=== PATIENT | female | born 1970 | race Caucasian/White ===

== ENCOUNTER → 2016-04-22 | Outpatient (CLI) | payer BC ==
--- NOTE | 2016-04-23 10:36 | MM ---
Reason for exam: screening (asymptomatic). Last mammogram was performed 3 years and 10 months ago. History: Took hormonal contraceptives for 10 years beginning at age 18. Physical Findings: A clinical breast exam by your physician is recommended on an annual basis and results should be correlated with mammographic findings. MG Screening Mammo w CAD Bilateral CC and MLO view(s) were taken. Prior study comparison: June 13, 2012, bilateral digital screening mammo w/CAD. January 21, 2009, bilateral digital screening mammogram. The breast tissue is heterogeneously dense. This may lower the sensitivity of mammography. Finding: There are typically benign round calcifications in the left breast. There is no discrete abnormality. ASSESSMENT: Benign, BI-RAD 2 RECOMMENDATION: Routine screening mammogram of both breasts in 1 year.
== END | disposition home or self-care (01) ==
LOC: RADMAMWWP 13:10
PROVIDERS: ATTEND Obstetrics & Gynecology
DX: Z12.31 Encounter for screening mammogram for malignant neoplasm of breast (principal)

== ENCOUNTER → 2016-05-11 | Outpatient (CLI) | payer BC ==
--- NOTE | 2016-05-11 11:52 | XR ---
EXAMINATION TYPE: XR chest 2V DATE OF EXAM: 05/11/2016 11:11 AM COMPARISON: 02/08/2009 HISTORY: 45-year-old female at this chronic heart disease of sun'aq coronaries, pain. TECHNIQUE: Frontal and lateral views FINDINGS: The cardiomediastinal silhouette, aorta, and pulmonary vasculature are within normal limits. Lungs an d pleural spaces are clear. IMPRESSION: No acute cardiopulmonary process.
== END | disposition home or self-care (01) ==
LOC: RADXRMAIN 10:58
PROVIDERS: ATTEND Family Medicine
DX: I25.10 Atherosclerotic heart disease of native coronary artery without angina pectoris (principal)
CPT/HCPCS: 71020

== ENCOUNTER → 2016-06-04 | Outpatient (CLI) | payer BC ==
--- NOTE | 2016-06-04 11:51 | EST ---
DATE OF SERVICE: 06/04/2016 AGE: 45Y SEX: F HT: 67 WT: 225 lbs. Protocol Bradford: X Other: Stage: II Dur. of Exercise: 7 minutes *Heart Rate Blood Pressure *Rest: 81 Rest: 176/87 * *Max. Achieved: 173 Maximum BP: 214/51 85% PMHR: 149 100% PMHR: 175 *METS: 8 INDICATIONS: Chest pain. MEDICATIONS: Atenolol, isosorbide, aspirin. Baseline EKG shows sinus rhythm, normal axis, normal intervals. Patient exercised on Bradford protocol for a total 7 minutes, achieving 8 METs, 98% of predicted maximal heart rate without chest pain. At peak exercise, there was [address] segment depression noted in the inferolateral leads. CONCLUSIONS: 1. Average exercise tolerance. 2. Abnormal stress test by EKG criteria.
--- NOTE | 2016-06-05 09:15 | ECHOF ---
Referral Reason:I25.10 CAD MEASUREMENTS -------- HEIGHT: 170.2 cm WEIGHT: 102.1 kg BP: 176/87 RVIDd: 3.4 cm (< 3.3) IVSd: 1.2 cm (0.6 - 1.1) LVIDd: 3.6 cm (3.9 - 5.3) LVPWd: 1.2 cm (0.6 - 1.1) IVSs: 1.7 cm LVIDs: 2.6 cm LVPWs: 1.9 cm LA Diam: 3.8 cm (2.7 - 3.8) LAESV Index (A-L): 20.64 ml/m Ao Diam: 2.9 cm (2.0 - 3.7) AV Cusp: 2.1 cm (1.5 - 2.6) MV EXCURSION: 19.089 mm (> 18.000) MV EF SLOPE: 69 mm/s (70 - 150) EPSS: 0.4 cm MV E Oseas: 0.88 m/s MV DecT: 251 ms MV A Oseas: 0.78 m/s MV E/A Ratio: 1.12 FINDINGS -------- Sinus rhythm. This was a technically adequate study. The left ventricular size is normal. There is borderline concentric left ventricular hypertrophy. Overall left ventricular systolic function is normal with, an EF between 60 - 65 %. The right ventricle is mildly enlarged. Normal LA size by volume 22+/-6 ml/m2. The right atrium is normal in size. The aortic valve is trileaflet and appears structurally normal. The mitral valve is normal. The tricuspid valve appears structurally normal. The pulmonic valve is normal. The aortic root size is normal. There is no pericardial effusion. CONCLUSIONS -------- 1. Sinus rhythm. 2. The mitral valve is normal. 3. The tricuspid valve appears structurally normal. 4. The pulmonic valve is normal. 5. The aortic root size is normal. 6. There is no pericardial effusion. 7. This was a technically adequate study. 8. The left ventricular size is normal. 9. There is borderline concentric left ventricular hypertrophy. 10. Overall left ventricular systolic function is normal with, an EF between 60 - 65 %. 11. The right ventricle is mildly enlarged. 12. Normal LA size by volume 22+/-6 ml/m2. 13. The right atrium is normal in size. 14. The aortic valve is trileaflet and appears structurally normal. LEVER TENDER: Liberty Garnett RDCS
== END | disposition home or self-care (01) ==
LOC: RADNMMAIN 11:02
PROVIDERS: ATTEND Family Medicine
DX: I51.7 Cardiomegaly (principal); I25.10 Atherosclerotic heart disease of native coronary artery without angina pectoris
CPT/HCPCS: 93017; 93306

== ENCOUNTER → 2018-03-07 | Outpatient (CLI) | payer BC ==
--- NOTE | 2018-03-07 10:14 | CT ---
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 TECHNIQUE: Contiguous high-resolution axial scanning of the temporal bones performed without IV cont rast. Coronal reformatted images obtained. FINDINGS: There is no abnormality of visualized intracranial structures. The skull base appears normal. The external auditory canals appear patent. The middle ear cavities are well pneumatized without any abnormal fluid detected. Mastoid air cells a re well pneumatized. There is no abnormality of middle ear ossicles. The round and oval windows are normal. There is no abnormality of bony labyrinths. Specifically, no pneumolabyrinth is identified. The vestibular and cochlear aqueducts are well visualized. The facial nerve canal is normal bilaterally. The internal auditory canal and meati are symmetrical bilaterally. There is no evidence of fractures. Mild mucosal thickening posterior left ethmoid air cells. Leftward nasal septal deviation. Reformatted images confirm above findings. IMPRESSION: 1. No specific CT findings such as leakage of perilymph into the middle ear or pneumolabyrinth in the inner ear to suggest labyrinthine fistula. 2. No specific abnormality identified on temporal bone CT.
== END | disposition home or self-care (01) ==
LOC: RADCTMAIN 09:03
PROVIDERS: ATTEND Otolaryngology
DX: H83.12 Labyrinthine fistula, left ear (principal)
CPT/HCPCS: 70480

== ENCOUNTER → 2018-03-13 | Outpatient (CLI) | payer BC ==
--- NOTE | 2018-03-16 11:05 | MM ---
Reason for exam: screening (asymptomatic). Last mammogram was performed 1 year and 11 months ago. History: Patient is postmenopausal. Took hormonal contraceptives for 10 years beginning at age 18. Taking estrogen for 2 months. Taking progesterone for 2 months. Physical Findings: A clinical breast exam by your physician is recommended on an annual basis and results should be correlated with mammographic findings. MG Screening Mammo w CAD Bilateral CC and MLO view(s) were taken. Prior study comparison: April 22, 2016, bilateral MG screening mammo w CAD. June 13, 2012, bilateral digital screening mammo w/CAD. The breast tissue is heterogeneously dense. This may lower the sensitivity of mammography. Finding: There are typically benign round, regional calcifications in the upper outer quadrant, anterior position of the left breast. There is no discrete abnormality. ASSESSMENT: Benign, BI-RAD 2 RECOMMENDATION: Routine screening mammogram of both breasts in 1 year.
== END | disposition home or self-care (01) ==
LOC: RADMAMWWP 09:42
PROVIDERS: ATTEND Obstetrics & Gynecology
DX: Z12.31 Encounter for screening mammogram for malignant neoplasm of breast (principal)
CPT/HCPCS: 77067

== ENCOUNTER → 2020-06-05 | Outpatient (CLI) | payer BC ==
--- NOTE | 2020-06-09 09:52 | MM ---
Reason for exam: screening (asymptomatic). Last mammogram was performed 2 years and 3 months ago. History: Patient is postmenopausal. Took hormonal contraceptives for 10 years beginning at age 18. Taking estrogen for 2 months. Taking progesterone for 2 months. Physical Findings: A clinical breast exam by your physician is recommended on an annual basis and results should be correlated with mammographic findings. MG Screening Mammo w CAD Bilateral CC and MLO view(s) were taken. Prior study comparison: March 13, 2018, bilateral MG screening mammo w CAD. April 22, 2016, bilateral MG screening mammo w CAD. The breast tissue is heterogeneously dense. This may lower the sensitivity of mammography. Benign oil cyst calcification on the left. No significant changes when compared with prior studies. ASSESSMENT: Benign, BI-RAD 2 RECOMMENDATION: Routine screening mammogram of both breasts in 1 year.
== END | disposition home or self-care (01) ==
LOC: RADMAMWWP 06:58
PROVIDERS: ATTEND Obstetrics & Gynecology
DX: Z12.31 Encounter for screening mammogram for malignant neoplasm of breast (principal)
CPT/HCPCS: 77067

== ENCOUNTER → 2020-09-05 | Day surgery (SDC) | payer BC ==
[2020-09-02 15:32] VITALS: BMI 33.6
[~2020-09-05] MED LIST: LACTATED RINGERS 1,000 ML IV ONE; LACTATED RINGERS 1,000 ML IV SCH; LIDOCAINE 1% INJ 10MG/ML (20 ML MDV) ONE; PROPOFOL 10 MG/ML 20 ML VIAL IV ONE
[2020-09-05 10:51] VITALS: TEMP 97.7
--- NOTE | 2020-09-05 12:24 | P.PCN ---
Date of Procedure: 09/05/20 Procedure(s) Performed: BRIEF HISTORY: Patient is a 50-year-old pleasant white female scheduled for an elective colonoscopy as a part of evaluation for colorectal neoplasia. PROCEDURE PERFORMED: Colonoscopy. With biopsy PREOPERATIVE DIAGNOSIS: Screening for colon cancer. IV sedation per Anesthesia. PROCEDURE: After informed consent was obtained, the patient, was brought into the endoscopy unit. IV sedation was administered by Anesthesia under continuous monitoring. Digital rectal examination was normal. Initially the Olympus CF-160 flexible video colonoscope was then inserted in the rectum, gradually advanced into the cecum without any difficulty. Careful examination was performed as the scope was gradually being withdrawn. Ileocecal valve and the appendiceal orifice were visualized and appeared normal. Prep was excellent. Mucosa of the cecum, ascending colon, transverse colon, descending colon, appeared normal. There was patchy areas of erythema noted in the proximal sigmoid colon extending from 30- 35 cm from the anal verge status post biopsy. Rest of the sigmoid colon, and rectum appeared normal. Retroflexion was performed in the rectum and no lesions were seen. The patient tolerated the procedure well. IMPRESSION: Mild patchy areas of erythema noted in the sigmoid colon extending from 30-35 cm from anal verge status post biopsy Rest of the colon appeared normal RECOMMENDATIONS: Findings of this examination were discussed with the patient as well as a family. He was advised to have a repeat screening colonoscopy in 10 years..
[2020-09-05 12:30] VITALS: PULSE 70; RESP 17
[2020-09-05 12:38] VITALS: BP 137/79
== END ==
LOC: ORWHC2ENDO 10:34
PROVIDERS: ATTEND Internal Medicine Gastroenterology
DX: Z12.11 Encounter for screening for malignant neoplasm of colon (principal); K63.9 Disease of intestine, unspecified; Z79.899 Other long term (current) drug therapy; I10 Essential (primary) hypertension; E78.5 Hyperlipidemia, unspecified; I25.2 Old myocardial infarction; K21.9 Gastro-esophageal reflux disease without esophagitis; Z79.82 Long term (current) use of aspirin
CPT/HCPCS: 88305; 45380; J2001; J2704

== ENCOUNTER → 2020-12-27 | Outpatient (CLI) | payer BC ==
[2020-12-27 17:17] LABS: Basophils # (A) 0.01 X 10*3/uL (0.00-0.10); Basophils % (A) 0.3 %; Eosinophils % (A) 2.8 %; HCT 41.9 % (37.2-46.3); MCH 25.6 pg (27.0-32.0); MCV 82.5 fL (80.0-97.0); Mean Platelet Volume 12.2 fL (9.5-12.2); Monocytes % (A) 11.2 %; Neutrophils # (A) 2.54 X 10*3/uL (1.80-7.70); Neutrophils % (A) 71.4 %; Platelet Count 205 X 10*3/uL (140-440); RBC 5.08 X 10*6/uL (4.10-5.20); RDW 15.6 % (11.5-14.5); WBC 3.56 X 10*3/uL (4.50-10.00)
[2020-12-27 21:04] LABS: African American GFR (CKD) 121.3 (60.0-200.0); Albumin 4.3 g/dL (3.8-4.9); Albumin/Globulin Ratio 2.35 (1.60-3.17); Anion Gap 13.7 mmol/L (4.00-12.00); BUN/Creat Ratio 19.27 Ratio (12.00-20.00); Blood Urea Nitrogen 12.1 mg/dL (9.0-27.0); Calcium 9.2 mg/dL (8.7-10.3); Carbon Dioxide 23.2 mmol/L (21.6-31.8); Chol/HDL Ratio 4.62 Ratio; Globulin 1.9 g/dL (1.6-3.3); HDL Cholesterol 26.4 mg/dL (40.00-60.00); LDL Cholesterol,Calculated 46.4 mg/dL (0.0-131.0); Non-African American GFR(CKD) 104.7 (60.0-200.0); Potassium 4.2 mmol/L (3.5-5.5); T4, Free (Free Thyroxine) 1.28 ng/dL (0.800-1.800); Total Bilirubin 0.6 mg/dL (0.30-1.20); Total Protein 6.2 g/dL (6.2-8.2); VLDL Calculation 49.2 mg/dL (5.00-40.00)
== END | disposition home or self-care (01) ==
LOC: LABWHC1 09:25
PROVIDERS: ATTEND Internal Medicine Interventional Cardiology
DX: I25.10 Atherosclerotic heart disease of native coronary artery without angina pectoris (principal); E78.2 Mixed hyperlipidemia; D47.3 Essential (hemorrhagic) thrombocythemia; R73.9 Hyperglycemia, unspecified
CPT/HCPCS: 36415; 80053; 80061; 83036; 84439; 84443; 85025

== ENCOUNTER → 2022-08-10 | Outpatient (CLI) | payer BC ==
--- NOTE | 2022-08-11 08:34 | MM ---
Reason for Exam: Screening (asymptomatic). Last mammogram was performed 2 year(s) and 2 month(s) ago. Patient History: Menarche at age 12. First Full-Term at age 29. Postmenopausal. Patient has history of breast feeding. Estrogen for 6 months. Progesterone for 6 months. Hormonal Contraceptives for 10 years from age 18 until age 28. Risk Values: Abigail 5 year model risk: 1.2%. NCI Lifetime model risk: 9.6%. Prior Study Comparison: 04/22/2016 Bilateral Screening Mammogram, [facility]. 03/13/2018 Bilateral Screening Mammogram, [facility]. 06/05/2020 Bilateral Screening Mammogram, [facility]. Tissue Density: The breast tissue is heterogeneously dense. This may lower the sensitivity of mammography. Findings: Analyzed By CAD. There is no suspicious group of microcalcifications or new suspicious mass in either breast. Overall Assessment: Negative, BI-RAD 1 Management: Screening Mammogram of both breasts in [address] [facility] will attempt to contact patient to return for supplemental views and ultrasound if indicated. Patient should continue monthly self-breast exams. A clinical breast exam by your physician is recommended on an annual basis. This exam should not preclude additional follow-up of suspicious palpable abnormalities. Note on Abigail scores and lifetime risk: 1. A Abigail score greater than 3% is considered moderate risk. If this is the case, consider specialist referral to assess eligibility for a risk reducing agent. 2. If overall lifetime risk for the development of breast cancer is 20% or higher, the patient may qualify for future screening with alternating mammogram and breast MRI. Electronically signed and approved by: Miquel Minor DO
== END | disposition home or self-care (01) ==
LOC: RADMAMWWP 07:27
PROVIDERS: ATTEND Internal Medicine Hematology & Oncology
DX: Z12.31 Encounter for screening mammogram for malignant neoplasm of breast (principal); Z78.0 Asymptomatic menopausal state
CPT/HCPCS: 77067

== ENCOUNTER → 2024-03-09 | Outpatient (CLI) | payer BC ==
--- NOTE | 2024-03-13 13:43 | MM ---
Reason for Exam: Screening (asymptomatic). Last mammogram was performed 1 year(s) and 7 month(s) ago. Patient History: Menarche at age 12. First Full-Term at age 29. Postmenopausal. Patient has history of breast feeding. Estrogen for 6 months. Progesterone for 6 months. Hormonal Contraceptives for 10 years from age 18 until age 28. Risk Values: Abigail 5 year model risk: 1.2%. NCI Lifetime model risk: 9.4%. Prior Study Comparison: 03/13/2018 Bilateral Screening Mammogram, [facility]. 06/05/2020 Bilateral Screening Mammogram, [facility]. 08/10/2022 Bilateral MG screening mammo w CAD, [facility]. Tissue Density: The breasts are heterogeneously dense, which may obscure small masses. Findings: Analyzed By CAD. Unchanged bilateral areas of asymmetric density. There is no suspicious group of microcalcifications or new suspicious mass in either breast. Overall Assessment: Benign, BI-RAD 2 Management: Screening Mammogram of both breasts in 1 year. Patient should continue monthly self-breast exams. A clinical breast exam by your physician is recommended on an annual basis. This exam should not preclude additional follow-up of suspicious palpable abnormalities. Note on Abigail scores and lifetime risk: 1. A Abigail score greater than 3% is considered moderate risk. If this is the case, consider specialist referral to assess eligibility for a risk reducing agent. 2. If overall lifetime risk for the development of breast cancer is 20% or higher, the patient may qualify for future screening with alternating mammogram and breast MRI. [facility], , 03/13/2024 1:40 PM. Electronically signed and approved by: Ana Parham M.D. Radiologist
== END | disposition home or self-care (01) ==
LOC: RADMAMWWP 11:18
PROVIDERS: ATTEND Internal Medicine Hematology & Oncology
DX: Z12.31 Encounter for screening mammogram for malignant neoplasm of breast (principal); I25.10 Atherosclerotic heart disease of native coronary artery without angina pectoris; E79.0 Hyperuricemia without signs of inflammatory arthritis and tophaceous disease; D47.3 Essential (hemorrhagic) thrombocythemia; G43.909 Migraine, unspecified, not intractable, without status migrainosus; D47.Z9 Other specified neoplasms of uncertain behavior of lymphoid, hematopoietic and related tissue; Z78.0 Asymptomatic menopausal state; Z71.3 Dietary counseling and surveillance; R92.333 Mammographic heterogeneous density, bilateral breasts
CPT/HCPCS: 77063; 77067

== ENCOUNTER → 2024-08-31 | Outpatient (CLI) | payer OTHER ==
--- NOTE | 2024-08-31 11:12 | CT ---
EXAMINATION TYPE: CT ChestAbdPelvis w con DATE OF EXAM: 08/31/2024 10:44 AM COMPARISON: 05/24/2013. CLINICAL INDICATION: Female, 54 years old with history of G72.49 INFLAMMATORY IMMUNE MYOPATHIES; PHH, INFLAMMATORY IMMUNE MYOPATHIES, MUSCLE PAIN AND WEAKNESS. Technique: CT ChestAbdPelvis w con; Multiple axial images were obtained. Two-dimensional coronal and sagittal reconstructions were obtained. Contrast used:100ml mL of Isovue 300 with IV Contrast, (None if empty) Oral contrast used: with Oral Contrast CT DLP: 1936.0 mGycm, Automated exposure control for dose reduction was used. Findings: CHEST: LUNGS/ PLEURA: No focal consolidation, pneumothorax or pleural effusion. AIRWAY: Patent and unremarkable. HEART: Size within normal limits. No significant coronary artery calcifications. MEDIASTINUM: No gross evidence of adenopathy. VASCULATURE: No aortic aneurysm. MUSCULOSKELETAL: No acute osseous abnormalities. SOFT TISSUES/LYMPH NODES: Unremarkable. LOWER NECK: No significant findings. ABDOMEN: ABDOMEN LIVER: Diffusely hypoattenuating parenchyma. GALLBLADDER AND BILE DUCTS: The gallbladder is surgically absent. PANCREAS: Unremarkable. SPLEEN: Enlarged Up to 16.1 cm. ADRENAL GLANDS: Unremarkable. KIDNEYS AND URETERS: No evidence of hydronephrosis or obstructing renal calculus. The ureters are unr emarkable. PELVIS BLADDER: Unremarkable REPRODUCTIVE: Large right pelvic cysts thought to be arising from the ovary measuring up to 11.3 x 10 .6 cm ABDOMEN & PELVIS STOMACH AND BOWEL: No evidence of bowel obstruction. Scattered colon diverticula. PERITONEUM/RETROPERITONEUM: No evidence of pneumoperitoneum or free fluid. VASCULATURE: No evidence of aortic aneurysm. MUSCULOSKELETAL: No acute osseous abnormalities LYMPH NODES: No gross evidence for lymphadenopathy. SOFT TISSUE/ABDOMINAL WALL: Fat-containing buccal hernia. IMPRESSION: 1. No evidence for acute abdominal process. 2. Large right pelvic cyst which has a simple appearance and thought to represent ovarian etiology. Measuring up to 11.3 cm. This predisposes the patient to ovarian torsion. 3. Splenomegaly measuring up to 16.1 cm. 4. Cholecystectomy changes. 5. Colonic diverticulosis. 6. Fat-containing umbilical hernia. 7. Hepatic steatosis. [facility], , 08/31/2024 11:10 AM
== END | disposition home or self-care (01) ==
LOC: RADCTMAIN 08:04
PROVIDERS: ATTEND Internal Medicine Rheumatology
DX: G72.49 Other inflammatory and immune myopathies, not elsewhere classified (principal); R16.1 Splenomegaly, not elsewhere classified; K57.30 Diverticulosis of large intestine without perforation or abscess without bleeding; K42.9 Umbilical hernia without obstruction or gangrene; K76.0 Fatty (change of) liver, not elsewhere classified; N94.89 Other specified conditions associated with female genital organs and menstrual cycle; N83.511 Torsion of right ovary and ovarian pedicle
CPT/HCPCS: 71260; 74177; Q9967

== ENCOUNTER 2024-09-25 08:07 | Day surgery (SDC) | payer OTHER ==
[~2024-09-25 08:07] MED LIST changes: -LACTATED RINGERS 1,000 ML IV ONE; -LACTATED RINGERS 1,000 ML IV SCH; -LIDOCAINE 1% INJ 10MG/ML (20 ML MDV) ONE; -PROPOFOL 10 MG/ML 20 ML VIAL IV ONE; +Pre Op ABX Message 1 EACH MISC MISCELLANE ONE; +SCOPOLAMINE 1 MG/72 HR PATCH TRANSDERM ONE
[2024-09-25] MEDS: IV FLUID CONTINUATION 1,000 ML IV ONE ×3 (08:32→11:48)
[2024-09-25] MEDS: HEPARIN SODIUM,PORCINE 5,000 UNIT/ML 1 ML VIAL SQ PRN (08:45)
[2024-09-25] MEDS: ACETAMINOPHEN TAB 500 MG TAB PO PRN (08:45)
[2024-09-25] MEDS: DEXAMETHASONE SOD PHOSPHATE 4 MG/ML 1 ML VIAL IV ONE (08:46)
[2024-09-25] MEDS: ONDANSETRON 4 MG/2 ML VIAL IVP ONE (08:46)
[2024-09-25] MEDS: LACTATED RINGERS 1,000 ML IV SCH (08:46)
[2024-09-25] MEDS ORDERED: LIDOCAINE 1% INJ 10MG/ML (20 ML MDV) ONE (09:00)
[2024-09-25] MEDS ORDERED: MIDAZOLAM 2 MG/2 ML VIAL ONE (09:00)
[2024-09-25] MEDS ORDERED: fentaNYL (PF) 50 MCG/ML 2 ML AMP ONE (09:00)
[2024-09-25] MEDS ORDERED: PROPOFOL 10 MG/ML 20 ML VIAL IV ONE (09:00)
[2024-09-25] MEDS: SODIUM CHLORIDE 0.9% 50 ML with ceFAZolin 2,000 MG IV ONE (09:20)
[2024-09-25] MEDS: LIDOCAINE 1%-EPI 1:100,000 20 ML VIAL SQ ONE (09:35)
--- NOTE | 2024-09-25 09:54 | P.OP ---
Date of Procedure: 09/25/24 Preoperative Diagnosis: Myositis Postoperative Diagnosis: Myositis Procedure(s) Performed: Left thigh muscle biopsy Anesthesia: NENA Surgeon: Armand Greer Estimated Blood Loss (ml): 5 Pathology: other (Left thigh quadricep muscle biopsy) Condition: stable Disposition: PACU Description of Procedure: The patient was placed on the operative table in the supine position. She received general allergic to bhesania. Her left thigh was prepped and draped you sterile fashion. A long tootle skin incision made over the anterior thigh. Then using electrocautery the subcu tissue divided. The fascia was then divided. The muscles then exposed. Then using a pair hemostats the muscle was bluntly dissected. The muscle was then clamped proximally distally and then divided with a 15 blade. The specimen was sent to pathology fresh. The proximal and distal ends of the muscle was oversewn with 0 Vicryl. The spout fascia was closed with 0 Vicryl. The skin was closed with 3-0 Monocryl. Dermabond dressing applied. Patient tolerated well. She was sent to recovery in stable condition.
[2024-09-25 09:59] VITALS: TEMP 98
[2024-09-25] MEDS: hydrALAZINE HCL 20 MG/ML 1 ML VIAL IVP STA (10:06)
[2024-09-25] MEDS: HYDROmorphone 0.5 MG/0.5 ML SYRINGE IVP PRN (10:15)
[2024-09-25] MEDS: MIDAZOLAM 2 MG/2 ML VIAL IV PRN (11:08)
[2024-09-25] MEDS: KETOROLAC 15 MG/ML 1 ML VIAL IVP STA (11:36)
[2024-09-25] MEDS: METOPROLOL TARTRATE 5 MG/5 ML VIAL IVP STA (12:34)
[2024-09-25 12:38] VITALS: RESP 16
[2024-09-25 13:03] VITALS: BP 168/79; PULSE 77
== END 2024-09-25 13:15 | disposition home or self-care (01) ==
LOC: OR 08:07
PROVIDERS: ATTEND Surgery
DX: M60.9 Myositis, unspecified (principal); A00-B99 Certain infectious and parasitic diseases; I25.2 Old myocardial infarction; D69.3 Immune thrombocytopenic purpura; Z79.899 Other long term (current) drug therapy
CPT/HCPCS: 20205; J2250; J0360; J1644; J1100; J2405; J0690; J2003; J3010; J1885; J2704; J1171; J0616

== ENCOUNTER 2024-09-27 04:39 | Observation (INO) | payer OTHER ==
--- NOTE | 2024-09-27 05:28 | ED ---
General Adult HPI - General Chief complaint: Chest Pain Stated complaint: irregular bp Time Seen by Provider: 09/27/24 04:45 Source: patient Mode of arrival: ambulatory - History of Present Illness Initial comments: Patient is a 54-year-old female with past medical history CAD, hypertension presenting today for hypertension and shortness of breath. Patient states that she had a muscle biopsy done about 3 days ago and at her biopsy she was noted to have high blood pressure, she has been having persistently high blood pressure over the last few days. Typically takes 50 mg of metoprolol and 25 mg of lisinopril nightly. Denies missed dosages. States she has been taking it twice a day over the last 3 days due to her high blood pressure. This morning she woke up and felt like she could not catch her breath which is what prompted her to present to the ER. When asked about chest pain she denies chest pain but states that her chest "feels uncomfortable". Denies recent fevers chills, illness, lightheadedness, dizziness, strokelike symptoms such as numbness, weakness, slurred speech or changes in vision. Denies severe headache or headaches currently. States she felt like her legs were swollen, over the last couple of days. No history of heart failure. Does take a baby aspirin daily except for the last week when she was taken off of it for her muscle biopsy. Pt had muscle biospy due to pain in her legs, thought to potentially be 2/2 myositis. - Related Data Home Medications Medication Instructions Recorded Confirmed Aspirin 325 mg PO HS 09/02/20 09/25/24 Isosorbide Mononitrate ER [Imdur] 30 mg PO BID 09/02/20 09/25/24 Loperamide [Imodium] 2 mg PO DAILY PRN 09/02/20 09/25/24 Melatonin 3 mg PO HS 09/02/20 09/25/24 Metoprolol Succinate [Toprol XL] 25 mg PO HS 09/02/20 09/25/24 allopurinoL [Zyloprim] 300 mg PO HS 09/02/20 09/25/24 Cholecalciferol (Vitamin D3) 50 mcg PO DAILY 09/24/24 09/25/24 [Vitamin D3 (50 Mcg = 2000 Iu)] Ubidecarenone [Co Q-10] 200 mg PO DAILY 09/24/24 09/25/24 hydroCHLOROthiazide 25 mg PO DAILY 09/24/24 09/25/24 Previous Rx's Medication Instructions Recorded Acetaminophen Tab [Tylenol] 650 mg PO Q6H #30 tab 09/25/24 Docusate [Colace] 100 mg PO BID #20 capsule 09/25/24 Ibuprofen [Motrin] 600 mg PO Q6HR PRN #40 tab 09/25/24 oxyCODONE HCL [OxyIR] 5 mg PO Q6H PRN 3 Days #10 tab 09/25/24 Allergies Allergy/AdvReac Type Severity Reaction Status Date / Time No Known Allergies Allergy Verified 09/27/24 04:43 Review of Systems ROS Statement: Those systems with pertinent positive or pertinent negative responses have been documented in the HPI. ROS Other: All systems not noted in ROS Statement are negative. Past Medical History Past Medical History: Blood Disorder, Chest Pain / Angina, GERD/Reflux, Hyperlipidemia, Hypertension, Liver Disease, Myocardial Infarction ([place]) Additional Past Medical History / Comment(s): migraines, occ palpitations, colitis, gout, high platelets, fatty liver; weakness & inflammation keegan knees & legs x 1 year. Last Myocardial Infarction Date:: 06/2006 History of Any Multi-Drug Resistant Organisms: None Reported Past Surgical History: Cholecystectomy, Heart Catheterization Additional Past Surgical History / Comment(s): hx colposcopy; hx two heart caths, no stents. colonoscopy. Past Anesthesia/Blood Transfusion Reactions: No Reported Reaction Past Psychological History: No Psychological Hx Reported Smoking Status: Former smoker Past Alcohol Use History: None Reported Past Drug Use History: None Reported - Past Family History Father Family Medical History: Cancer Mother Family Medical History: Cancer Sister(s) Family Medical History: Cancer General Exam - General Exam Comments Initial Comments: PE: CONSTITUTIONAL: No apparent distress, well appearing SKIN: Warm, dry, no jaundice, hives or petechiae EYES: Pupils are equally round, extraocular movements intact without nystagmus, clear conjunctiva, non-icteric sclera HENT: Normocephalic, atraumatic, moist mucus membranes, oropharynx clear without exudates NECK: , Full range of motion, normal appearance PULMONARY: Clear to auscultation without wheezes, rhonchi, or rales, normal excursion, no accessory muscle use and no stridor CARDIOVASCULAR: Regular rate, rhythm, normal S1 and S2. No appreciated murmurs, rubs or gallops. Strong radial pulses with intact distal perfusion. No lower extremity edema GASTROINTESTINAL: Soft, active bowel sounds throughout, non-tender, non- distended, no palpable masses, no rebound or guarding. No hepatosplenomegaly MUSCULOSKELETAL: Extremities have no gross deformity, no edema, redness, or swelling. No calf swelling NEUROLOGIC:_a/o x 3, GCS 15, normal mentation and speech. Moves all extremities x 4 without motor or sensory deficit PSYCHIATRIC:_normal mood and affect, thought process is clear and linear Course Vital Signs 09/27/24 09/27/24 09/27/24 04:40 05:34 06:57 Temperature 98.3 F Pulse Rate 76 70 58 L Respiratory 20 18 18 Rate Blood Pressure 214/84 159/78 167/89 O2 Sat by Pulse 99 99 98 Oximetry 09/27/24 09/27/24 07:33 07:34 Temperature 98.5 F Pulse Rate 55 L 60 Respiratory 18 Rate Blood Pressure 175/80 O2 Sat by Pulse 99 Oximetry EKG Findings - EKG Comments: EKG Findings:: Sinus rhythm, rate 63 bpm intervals in acceptable limits, no significant ST elevations or depressions, no signs of LVH, no arrhythmia Medical Decision Making - Medical Decision Making Was pt. sent in by a medical professional or institution ([facility], [employer], urgent care, hospital, or fpc...) When possible be specific @ -No Did you speak to anyone other than the patient for history (EMS, parent, family, police, friend...)? What history was obtained from this source @ -No Did you review nursing and triage notes (agree or disagree)? Why? @ -I reviewed nursing and triage notes disagree, patient currently denies "chest pain" but endorses vague "discomfort" Were old charts reviewed (outside hosp., previous admission, EMS record, old EKG, old radiological studies, urgent care reports/EKG's, fpc records)? 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 Differential Diagnosis (chest pain, altered mental status, abdominal pain women, abdominal pain men, vaginal bleeding, weakness, fever, dyspnea, syncope, headache, dizziness, GI bleed, back pain, seizure, CVA, palpatations, mental health, musculoskeletal)? Differential Dyspnea: Coronary syndrome, arrhythmia, tamponade, asthma, COPD, pulmonary embolism, pneumonia, pneumothorax, pulmonary effusion, anaphylaxis, diabetic ketoacidosis, flailed chest, pulmonary contusion, diaphragmatic rupture, anemia, neuromuscular, this is not meant to be an all-inclusive list. EKG interpreted by me (3pts min.). @ -As above X-rays interpreted by me (1pt min.). @Personally reviewed chest x-ray see no evidence of cardiomegaly consolidations or pleural effusions I agree with radiologist interpretation CT interpreted by me (1pt min.). @ -None done U/S interpreted by me (1pt. min.). @ -None done What testing was considered but not performed or refused? (CT, X-rays, U/S, lab s)? Why? @ -None What meds were considered but not given or refused? Why? @ -None Did you discuss the management of the patient with other professionals (professionals i.e. , PA, [employer], lab, RT, psych nurse, social sciences chair, seamless tube drawer, teacher, weapons officer naval activity, case consultant)? Give summary @ -No Was smoking cessation discussed for >3mins.? @ -No Was critical care preformed (if so, how long)? @ -No Were there social determinants of health that impacted care today? How? (Homelessness, low income, unemployed, alcoholism, drug addiction, transportation, low edu. Level, literacy, decrease access to med. care, longterm, rehab)? @ -No Was there de-escalation of care discussed even if they declined (Discuss DNR or withdrawal of care, Hospice)? @ -No What co-morbidities impacted this encounter? (DM, HTN, Smoking, COPD, CAD, Cancer, CVA, ARF, Chemo, Hep., AIDS, mental health diagnosis, sleep apnea, morbid obesity)? @ -Hypertension, CAD Was patient admitted / discharged? Hospital course, mention meds given and route, prescriptions, significant lab abnormalities, going to OR and other pertinent info. @Admission- this is a pleasant 54-year-old female with past medical history as above presenting today for hypertension with new onset shortness of breath this morning as well as chest discomfort. Blood pressure is significantly elevated on arrival- pressure 214/84. No lower extremity edema on exam, lungs are clear to auscultation bilaterally. Discussed with patient plan for aspirin, labetalol, labs and chest x-ray. Patient agreeable plan of care.On recheck after 20 mg IV labetalol, blood pressure 159/78. Patient endorses some improvement of symptoms though states that she does still feel somewhat short of breath which improves with sitting forward. Labs were significant for magnesium of 1.3, IV and oral replacement were ordered. AST/ALT slightly elevated 47/35, troponin 0.012, BNP 915. Updated patient to findings. I did discuss with her that due to her history of CAD and risk factors, associated chest discomfort and shortness of breath with hypertension today plan for admission for observation to which she was agreeable. Case was discussed with Dr. Fink who kindly accepted pt for admission. Undiagnosed new problem with uncertain prognosis? @ -No Drug Therapy requiring intensive monitoring for toxicity (Heparin, Nitro, Insulin, Cardizem)? @ -No Were any procedures done? @ -No Diagnosis/symptom? @ -Hypertensive urgency, chest pain, hypomagnesemia Acute, or Chronic, or Acute on Chronic? @ acute Uncomplicated (without systemic symptoms) or Complicated (systemic symptoms)? @complicated Side effects of treatment? @ -No Exacerbation, Progression, or Severe Exacerbation? @ -No Poses a threat to life or bodily function? How? (Chest pain, [place], [place], pneumonia, PE, COPD, DKA, ARF, appy, cholecystitis, CVA, Diverticulitis, Homicidal, Suicidal, threat to staff... and all critical care pts) @ Possibly - Lab Data Result diagrams: 09/27/24 05:00 09/27/24 05:00 Lab Results 09/27/24 09/27/24 09/27/24 Range/Units 05:00 05:00 05:00 WBC 5.72 (4.50-10.00) 10*3/uL RBC 4.80 (4.10-5.20) 10*6/uL Hgb 12.7 (12.0-15.0) g/dL Hct 38.5 (37.2-46.3) % MCV 80.2 (80.0-97.0) fL MCH 26.5 L (27.0-32.0) pg MCHC 33.0 (32.0-37.0) g/dL Plt Count 183 (140-440) 10*3/uL MPV 9.6 (9.5-12.2) fL Immature Gran % (Auto) 1.4 % Neutrophils % 77.2 % Lymphocytes % 14.7 % Monocytes % 5.2 % Eosinophils % 1.2 % Basophils % 0.3 % Immature Gran # 0.08 H (0.00-0.04) 10*3/uL Neutrophils # 4.41 (1.80-7.70) 10*3/uL Lymphocytes # 0.84 L (0.90-5.00) 10*3/uL Monocytes # 0.30 (0.20-1.00) 10*3/uL Eosinophils # 0.07 (0.04-0.35) 10*3/uL Basophils # 0.02 (0.00-0.10) 10*3/uL PT 10.8 (10.0-12.5) sec INR 1.0 (<1.2) APTT 22.2 (22.0-30.0) sec D-Dimer 0.50 (<0.60) mg/L FEU Sodium 140 (137-145) mmol/L Potassium 3.6 (3.5-5.1) mmol/L Chloride 101 (98-107) mmol/L Carbon Dioxide 27 (22-30) mmol/L Anion Gap 12 mmol/L BUN 16 (7-17) mg/dL Creatinine 0.46 L (0.52-1.04) mg/dL Est GFR (CKD-EPI)AfAm >90 (>60 ml/min/1.73 sqM) Est GFR (CKD-EPI)NonAf >90 (>60 ml/min/1.73 sqM) Glucose 100 H (74-99) mg/dL Calcium 10.0 (8.4-10.2) mg/dL Magnesium 1.3 L (1.6-2.3) mg/dL Total Bilirubin 0.8 (0.2-1.3) mg/dL AST 47 H (14-36) U/L ALT 35 H (4-34) U/L Alkaline Phosphatase 70 (38-126) U/L Troponin I (0.000-0.034) ng/mL NT-Pro-B Natriuret Pep 915 pg/mL Total Protein 6.4 (6.3-8.2) g/dL Albumin 4.3 (3.5-5.0) g/dL 09/27/24 Range/Units 05:00 WBC (4.50-10.00) 10*3/uL RBC (4.10-5.20) 10*6/uL Hgb (12.0-15.0) g/dL Hct (37.2-46.3) % MCV (80.0-97.0) fL MCH (27.0-32.0) pg MCHC (32.0-37.0) g/dL Plt Count (140-440) 10*3/uL MPV (9.5-12.2) fL Immature Gran % (Auto) % Neutrophils % % Lymphocytes % % Monocytes % % Eosinophils % % Basophils % % Immature Gran # (0.00-0.04) 10*3/uL Neutrophils # (1.80-7.70) 10*3/uL Lymphocytes # (0.90-5.00) 10*3/uL Monocytes # (0.20-1.00) 10*3/uL Eosinophils # (0.04-0.35) 10*3/uL Basophils # (0.00-0.10) 10*3/uL PT (10.0-12.5) sec INR (<1.2) APTT (22.0-30.0) sec D-Dimer (<0.60) mg/L FEU Sodium (137-145) mmol/L Potassium (3.5-5.1) mmol/L Chloride (98-107) mmol/L Carbon Dioxide (22-30) mmol/L Anion Gap mmol/L BUN (7-17) mg/dL Creatinine (0.52-1.04) mg/dL Est GFR (CKD-EPI)AfAm (>60 ml/min/1.73 sqM) Est GFR (CKD-EPI)NonAf (>60 ml/min/1.73 sqM) Glucose (74-99) mg/dL Calcium (8.4-10.2) mg/dL Magnesium (1.6-2.3) mg/dL Total Bilirubin (0.2-1.3) mg/dL AST (14-36) U/L ALT (4-34) U/L Alkaline Phosphatase (38-126) U/L Troponin I 0.012 (0.000-0.034) ng/mL NT-Pro-B Natriuret Pep pg/mL Total Protein (6.3-8.2) g/dL Albumin (3.5-5.0) g/dL Disposition Clinical Impression: Chest pain, Hypertensive urgency, Hypomagnesemia Disposition: ADMITTED IP TO THIS HOSP Condition: Stable
[2024-09-27] MEDS: LABETALOL 5 MG/ML VIAL MDV IVP STA (05:30)
[2024-09-27] MEDS: ASPIRIN 81 MG PO STA (05:30)
[2024-09-27 05:39] LABS: Basophils # (A) 0.02 10*3/uL (0.00-0.10); Basophils % (A) 0.3 %; Eosinophils # (A) 0.07 10*3/uL (0.04-0.35); Eosinophils % (A) 1.2 %; HCT 38.5 % (37.2-46.3); HGB 12.7 g/dL (12.0-15.0); Lymphocytes # (A) 0.84 10*3/uL (0.90-5.00); Lymphocytes % (A) 14.7 %; MCH 26.5 pg (27.0-32.0); MCHC 33.0 g/dL (32.0-37.0); MCV 80.2 fL (80.0-97.0); Monocytes # (A) 0.30 10*3/uL (0.20-1.00); Monocytes % (A) 5.2 %; Neutrophils # (A) 4.41 10*3/uL (1.80-7.70); Neutrophils % (A) 77.2 %; Platelet Count 183 10*3/uL (140-440); RBC 4.80 10*6/uL (4.10-5.20); RDW 16.5 % (11.5-14.5); WBC 5.72 10*3/uL (4.50-10.00)
[2024-09-27 05:46] LABS: ALT 35 U/L (4-34); AST 47 U/L (14-36); African American GFR (CKD) >90 (>60 ml/min/1.73 sqM); Albumin 4.3 g/dL (3.5-5.0); Alkaline Phosphatase 70 U/L (38-126); Anion Gap 12 mmol/L; Blood Urea Nitrogen 16 mg/dL (7-17); Calcium 10.0 mg/dL (8.4-10.2); Carbon Dioxide 27 mmol/L (22-30); Chloride 101 mmol/L (98-107); Glucose 100 mg/dL (74-99); Magnesium 1.3 mg/dL (1.6-2.3); Non-African American GFR(CKD) >90 (>60 ml/min/1.73 sqM); Potassium 3.6 mmol/L (3.5-5.1); Sodium 140 mmol/L (137-145); Total Protein 6.4 g/dL (6.3-8.2)
[2024-09-27 05:48] LABS: INR 1.0 (<1.2); Partial Thromboplastin Time 22.2 sec (22.0-30.0); Prothrombin Time 10.8 sec (10.0-12.5)
[2024-09-27 05:54] LABS: NT-Pro-B-Type Natriuretic Pept 915 pg/mL
--- NOTE | 2024-09-27 05:55 | XR ---
EXAMINATION TYPE: XR chest 2V DATE OF EXAM: 09/27/2024 CLINICAL INDICATION: Female, 54 years old with history of Chest Pain, HTN , ELIO, TECHNIQUE: Frontal and lateral views of the chest are obtained. COMPARISON: Chest CT August 31, 2024 FINDINGS: Overlying EKG leads are present. There is no focal air space opacity, pleural effusion, or pneumothorax seen. The cardiac silhouette size is within normal limits. The osseous structures ar e intact. IMPRESSION: No acute cardiopulmonary process. [facility], , 09/27/2024 5:52 AM
[2024-09-27] MEDS: MAGNESIUM OXIDE 400 MG TAB PO STA (06:50)
[2024-09-27] MEDS: MAGNESIUM SULFATE-D5W PMX 1 GM in DEXTROSE/WATER 1 100ML.BAG IVPB SCH (06:51)
[2024-09-27] MEDS ORDERED: MORPHINE SULFATE 4 MG/ML SYRINGE IV PRN (07:10)
[2024-09-27] MEDS ORDERED: NALOXONE 0.4 MG/ML 1 ML VIAL IV PRN (07:10)
[2024-09-27] MEDS ORDERED: traMADol 50 MG TAB PO PRN (07:10)
[2024-09-27] MEDS: MAGNESIUM OXIDE 400 MG TAB PO SCH (08:13)
[2024-09-27] MEDS: FAMOTIDINE 20 MG TAB PO SCH (08:22)
[2024-09-27] MEDS: hydroCHLOROthiazide 25 MG TAB PO SCH (08:22)
[2024-09-27] MEDS: ENOXAPARIN 40 MG/0.4 ML SYRINGE SQ SCH (08:23)
[2024-09-27] MEDS: amLODIPine 10 MG TAB PO SCH (08:53)
[2024-09-27] MEDS: ISOSORBIDE MONONITRATE ER 30 MG TAB.ER.24H PO SCH (08:53)
[2024-09-27] MEDS: TRIAMTERENE-HCTZ 37.5-25MG 1 EACH CAP PO SCH (09:41)
[2024-09-27 11:21] LABS: T4, Free (Free Thyroxine) 1.85 ng/dL (0.78-2.19)
--- NOTE | 2024-09-27 13:03 | P.CRDCN ---
History of Present Illness Consult date: 09/27/24 Consult reason: chest pain, hypertension History of present illness: This is a 54-year-old female previously seen by Dr. Hong in 2021 with past medical history of coronary artery disease, hypertension, hyperlipidemia, palpitations, gout, intolerance to statin. We have been asked to evaluate the patient for hypertensive urgency. Patient states that she has had problems with muscle weakness and had a biopsy done of her left thigh by Dr. Greer on Tuesday. She states since Tuesday her blood pressure has been high. She has not been on any steroids and no new medication changes. She states her blood pressure normally runs normal when she is at her primary care, Dr. Castañeda or Dr. Anthony's office. Patient denies chest pain. No headache. Patient states that she has had cardiac catheterization done in the past but did not require PCI. Patient presented with a blood pressure of 214/84. She is status post 1 dose of IV labetalol, magnesium replacement. Blood pressure is now 182/78, heart rate 70, pulse ox 96% on room air. Patient seen today in the emergency center waiting for a bed on the observation unit. -EKG: Sinus rhythm with no acute ST-T wave changes. -Chest x-ray: No acute process. -Laboratory studies: -Home cardiac medications: Aspirin 325 mg at bedtime, hydrochlorothiazide 25 mg daily, Imdur 30 mg twice daily, metoprolol succinate 50 mg at bedtime. -Echocardiogram performed in the office 01/02/2021 revealed EF of 55 to 60%, mild mitral regurgitation. Review Of Systems: At the time of my exam: CONSTITUTIONAL: Denies fever or chills. HEENT: Denies blurred vision, vision changes, or eye pain. Denies hemoptysis CARDIOVASCULAR: Denies chest pain. Denies orthopnea. Denies PND. Denies palpitations RESPIRATORY: Denies shortness of breath. GASTROINTESTINAL: Denies abdominal pain. Denies nausea or vomiting. HEMATOLOGIC: Denies bleeding disorders. GENITOURINARY: Denies any blood in urine. SKIN: Denies puritis. Denies rash. Physical examination: Gen: This is a 54-year-old female in no acute distress. VS: reviewed HEENT: Head is atraumatic, normocephalic. Pupils equal, round. Sclerae is anicteric. NECK: Supple. No JVD. LUNGS: Clear to auscultation. No wheezes or rhonchi. No intercostal retraction s. HEART: Regular rate and rhythm. ABDOMEN: Soft No tenderness. EXTREMITIES: No pedal edema. No calf tenderness. NEUROLOGICAL: Patient is awake, alert and oriented x3. Assessment: Hypertensive urgency History of coronary artery disease without PCI Hypertension Hyperlipidemia Intolerance to statins Recent muscle biopsy done for muscle weakness Plan: Resume patient's home cardiac medications with the following changes: Discontinue hydrochlorothiazide and start patient on triamterene hydroch lorothiazide 37.5-25 mg daily Start patient on amlodipine 10 mg daily Continue Imdur and metoprolol succinate Obtain lipid panel and TSH with free T4 Obtain 2-D echocardiogram and Doppler study to assess cardiac structure and function Further recommendations to follow based upon clinical course Thank you kindly for this consultation. Nurse practitioner note has been reviewed, I agree with documented findings and plan of care. Patient was seen and examined. Past Medical History Past Medical History: Blood Disorder, Chest Pain / Angina, GERD/Reflux, Hype rlipidemia, Hypertension, Liver Disease, Myocardial Infarction ([place]) Additional Past Medical History / Comment(s): migraines, occ palpitations, colitis, gout, high platelets, fatty liver; weakness & inflammation keegan knees & legs x 1 year. Last Myocardial Infarction Date:: 06/2006 History of Any Multi-Drug Resistant Organisms: None Reported Past Surgical History: Cholecystectomy, Heart Catheterization Additional Past Surgical History / Comment(s): hx colposcopy; hx two heart caths, no stents. colonoscopy. Past Anesthesia/Blood Transfusion Reactions: No Reported Reaction Past Psychological History: No Psychological Hx Reported Smoking Status: Former smoker Past Alcohol Use History: None Reported Past Drug Use History: None Reported - Past Family History Father Family Medical History: Cancer Mother Family Medical History: Cancer Sister(s) Family Medical History: Cancer Medications and Allergies Home Medications Medication Instructions Recorded Confirmed Type Aspirin 325 mg PO HS 09/02/20 09/27/24 History Isosorbide Mononitrate ER [Imdur] 30 mg PO BID 09/02/20 09/27/24 History Loperamide [Imodium] 2 mg PO DAILY PRN 09/02/20 09/27/24 History Melatonin 3 mg PO HS 09/02/20 09/27/24 History allopurinoL [Zyloprim] 300 mg PO HS 09/02/20 09/27/24 History Cholecalciferol (Vitamin D3) 50 mcg PO DAILY 09/24/24 09/27/24 History [Vitamin D3 (50 Mcg = 2000 Iu)] Ubidecarenone [Co Q-10] 200 mg PO DAILY 09/24/24 09/27/24 History hydroCHLOROthiazide 25 mg PO DAILY 09/24/24 09/27/24 History Ibuprofen [Motrin] 600 mg PO Q6HR PRN #40 tab 09/25/24 09/27/24 Rx oxyCODONE HCL [OxyIR] 5 mg PO Q6H PRN 3 Days #10 tab 09/25/24 09/27/24 Rx Acetaminophen Tab [Tylenol] 650 mg PO Q6H PRN 09/27/24 09/27/24 History Metoprolol Succinate (ER) [Toprol 50 mg PO HS 09/27/24 09/27/24 History Xl] Allergies Allergy/AdvReac Type Severity Reaction Status Date / Time No Known Allergies Allergy Verified 09/27/24 11:18 Physical Exam Vitals: Vital Signs Temp Pulse Resp BP Pulse Ox 09/27/24 08:20 82 16 178/82 97 09/27/24 07:34 98.5 F 60 18 175/80 99 09/27/24 07:33 55 L 09/27/24 06:57 58 L 18 167/89 98 09/27/24 05:34 70 18 159/78 99 09/27/24 04:40 98.3 F 76 20 214/84 99 Intake and Output 09/26/24 09/27/24 09/27/24 22:59 06:59 14:59 Other: Weight 90.718 kg Results 09/27/24 05:00 09/27/24 05:00 Cardiac Enzymes 09/27/24 09/27/24 Range/Units 05:00 05:00 AST 47 H (14-36) U/L Troponin I 0.012 (0.000-0.034) ng/mL Coagulation 09/27/24 Range/Units 05:00 PT 10.8 (10.0-12.5) sec APTT 22.2 (22.0-30.0) sec CBC 09/27/24 Range/Units 05:00 WBC 5.72 (4.50-10.00) 10*3/uL RBC 4.80 (4.10-5.20) 10*6/uL Hgb 12.7 (12.0-15.0) g/dL Hct 38.5 (37.2-46.3) % Plt Count 183 (140-440) 10*3/uL Comprehensive Metabolic Panel 09/27/24 Range/Units 05:00 Sodium 140 (137-145) mmol/L Potassium 3.6 (3.5-5.1) mmol/L Chloride 101 (98-107) mmol/L Carbon Dioxide 27 (22-30) mmol/L BUN 16 (7-17) mg/dL Creatinine 0.46 L (0.52-1.04) mg/dL Glucose 100 H (74-99) mg/dL Calcium 10.0 (8.4-10.2) mg/dL AST 47 H (14-36) U/L ALT 35 H (4-34) U/L Alkaline Phosphatase 70 (38-126) U/L Total Protein 6.4 (6.3-8.2) g/dL Albumin 4.3 (3.5-5.0) g/dL Current Medications Generic Name Dose Route Start Last Admin Trade Name Freq PRN Reason Stop Dose Admin Acetaminophen 650 mg 09/27/24 07:10 Acetaminophen Tab 325 Mg Tab PO Q6HR PRN Mild Pain or Fever > 100.5 Aspirin 325 mg 09/27/24 21:00 Aspirin 325 Mg Tab PO HS DIANNA Enoxaparin Sodium 40 mg 09/27/24 09:00 09/27/24 08:23 Enoxaparin 40 Mg/0.4 Ml Syringe SQ 40 mg DAILY DIANNA Administration Famotidine 20 mg 09/27/24 09:00 09/27/24 08:22 Famotidine 20 Mg Tab PO 20 mg BID DIANNA Administration Hydrochlorothiazide 25 mg 09/27/24 09:00 09/27/24 08:22 Hydrochlorothiazide 25 Mg Tab PO 25 mg DAILY DIANNA Administration Magnesium Sulfate/Dextrose 1 100 mls @ 100 mls/hr 09/27/24 06:45 09/27/24 07:55 gm/ IV Solution IVPB 09/27/24 08:44 100 mls/hr Q1H DIANNA Administration Magnesium Oxide 400 mg 09/27/24 09:00 09/27/24 08:13 Magnesium Oxide 400 Mg Tab PO Not Given BID DIANNA Metoprolol Succinate 25 mg 09/27/24 21:00 Metoprolol Succinate (Er) 25 Mg Tab.Er.24h PO HS [facility] Morphine Sulfate 4 mg 09/27/24 07:10 Morphine Sulfate 4 Mg/Ml Syringe IV Q4HR PRN Severe Pain (Scale 7 to 10) Naloxone HCl 0.2 mg 09/27/24 07:10 Naloxone 0.4 Mg/Ml 1 Ml Vial IV Q2M PRN Opioid Reversal Tramadol HCl 50 mg 09/27/24 07:10 Tramadol 50 Mg Tab PO Q6H PRN Moderate Pain (Scale 4 to 6) Intake and Output 09/26/24 09/27/24 09/27/24 22:59 06:59 14:59 Other: Weight 90.718 kg 09/27/24 05:00 09/27/24 05:00
[2024-09-27] MEDS: LOSARTAN 25 MG TAB PO SCH (14:48)
--- NOTE | 2024-09-27 14:52 | CA ---
Transthoracic Echo Report Name: Katy Aleman Age: 54 Gender: F : 1970 Exam Date: 09/27/2024 09:16 Exam Location: [facility] Ht (in): 67 Wt (lb): 200 Ordering Physician: Marian Patel Attending/Referring Phys: [id number], Jorge Olericulturist Liberty Garnett RDCS Procedure CPT: Indications: HTN, CP, please use definity Cardiac Hx: Technical Quality: Good Contrast 1: Total Dose (mL): Contrast 2: Total Dose (mL): MEASUREMENTS (Male / Female) Normal Values 2D ECHO LV Diastolic Diameter PLAX 4.7 cm 4.2 - 5.9 / 3.9 - 5.3 cm LV Systolic Diameter PLAX 2.9 cm IVS Diastolic Thickness 1.2 cm 0.6 - 1.0 / 0.6 - 0.9 cm LVPW Diastolic Thickness 1.1 cm 0.6 - 1.0 / 0.6 - 0.9 cm LV Relative Wall Thickness 0.5 RV Internal Dim ED PLAX 3.3 cm LA Systolic Diameter LX 4.1 cm 3.0 - 4.0 / 2.7 - 3.8 cm LV Diastolic Volume MOD BP 109.7 cm??? 67 - 155 / 56 - 104 cm??? LV Systolic Volume MOD BP 37.3 cm??? 22 - 58 / 19 - 49 cm??? LV Ejection Fraction MOD BP 66.0 % >= 55 % LV Cardiac Index MOD BP 2345.6 cm???/min???m??? LV Diastolic Volume MOD 4C 109.6 cm??? LV Systolic Volume MOD 4C 45.9 cm??? LV Ejection Fraction MOD 4C 58.2 % LV Cardiac Index MOD 4C 2064.4 cm???/min???m??? LV Diastolic Length 4C 9.2 cm LV Systolic Length 4C 7.5 cm LV Diastolic Volume MOD 2C 114.6 cm??? LV Systolic Volume MOD 2C 50.1 cm??? LV Ejection Fraction MOD 2C 56.3 % LV Cardiac Index MOD 2C 2087.7 cm???/min???m??? LV Diastolic Length 2C 8.9 cm LV Systolic Length 2C 7.2 cm M-MODE Aortic Root Diameter MM 2.8 cm LA Systolic Diameter MM 1.7 cm LA Ao Ratio MM 0.6 DOPPLER Mitral E Point Velocity 109.9 cm/s Mitral A Point Velocity 110.9 cm/s Mitral E to A Ratio 1.0 MV Deceleration Time 233.4 ms MV E' Velocity 8.7 cm/s Mitral E to MV E' Ratio 12.7 TR Peak Velocity 231.7 cm/s TR Peak Gradient 21.5 mmHg Right Ventricular Systolic Press 42.0 mmHg FINDINGS Left Ventricle Left ventricular ejection fraction is estimated at 55-60 %. Left ventricular cavity size normal. Mildly increased septal wall thickness. Mildly increased posterior wall thickness. Mildly increased left ventricular diastolic volume. Right Ventricle Normal right ventricular size. Mild pulmonary hypertension. Right Atrium Normal right atrial size. No right atrial thrombus or mass seen. Left Atrium Mildly increased left atrial diameter. No left atrial thrombus or mass present. Mitral Valve Structurally normal mitral valve. No evidence for mitral valve prolapse. No mitral stenosis. Trace to mild mitral regurgitation. Aortic Valve Trileaflet aortic valve. No aortic valve stenosis or regurgitation. Tricuspid Valve Structurally normal tricuspid valve. Trace to mild tricuspid regurgitation. Pulmonic Valve Structurally normal pulmonic valve. Trace pulmonic regurgitation. Pericardium No pericardial effusion. Aorta Normal size aortic root and proximal ascending aorta. CONCLUSIONS Reason: Chest discomfort hypertension LVH with preserved systolic function Left atrial enlargement Previewed by: Dr. Jared Enamorado MD (Electronically Signed) Final Date: 27 September 2024 14:51
[2024-09-27 15:33] LABS: Cholesterol 189.00 mg/dL (0.00-200.00); HDL Cholesterol 37.20 mg/dL (40.00-60.00); LDL Cholesterol,Calculated 72.8 mg/dL (0.0-131.0); Triglycerides 395.00 mg/dL (0.00-149.00); VLDL Calculation 79.00 mg/dL (5.00-40.00)
--- NOTE | 2024-09-27 17:06 | P.PN ---
Subjective Progress Note Date: 09/27/24 This is a pleasant 54-year-old female with medical history significant for platelet disorder, GERD, hypertension, hyperlipidemia, myocardial infarction with cardiac catheterization x 2 no history of percutaneous intervention, former smoker. Patient presents to the hospital with complaints of elevated blood pressure. Patient states that she was at her rheumatology Dr. Anthony's office 3 days ago and underwent a biopsy of her left thigh muscle for a undergoing workup for myositis. Patient states that it was noted that her blood pressure was elevated at the doctor's office in the 180s systolic. She states that over the last couple days she has checked her blood pressure and it has remained elevated in the 180-190 systolic. She also reports feeling short of breath with difficulty lying flat to sleep. She states that she has intermittent anginal- like chest pain at baseline. She is maintained on Imdur for this. Patient also noted that she had bilateral lower extremity edema. 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 She has seen Dr. Jensen in the office before. Patient is been tandem with Toprol 50 mg at bedtime as well as hydrochlorothiazide. She states that she was taking double dosing of her medications without improvement in her symptoms or blood pressure. Upon admission to the ER her blood pressure was 214/84. Patient received a dose of IV push labetalol 20 mg as well as her 50 mg dose of metoprolol and was resumed on her home medications. Patient still feels short of breath and her blood pressure remains elevated in the 180 systolic. Cardiology was consulted for evaluation echocardiogram has been ordered and pending. REVIEW OF SYSTEMS: CONSTITUTIONAL: No fever, no malaise, no fatigue. HEENT: No recent visual problems or hearing problems. Denied any sore throat. CARDIOVASCULAR: No chest pain, orthopnea, PND, no palpitations, no syncope. PULMONARY: No shortness of breath, no cough, no hemoptysis. GASTROINTESTINAL: No diarrhea, no nausea, no vomiting, no abdominal pain. NEUROLOGICAL: No headaches, no weakness, no numbness. HEMATOLOGICAL: Denies any bleeding or petechiae. GENITOURINARY: Denies any burning micturition, frequency, or urgency. MUSCULOSKELETAL/RHEUMATOLOGICAL: Denies any joint pain, swelling, or any muscle pain. ENDOCRINE: Denies any polyuria or polydipsia. The rest of the 14-point review of systems is negative. PHYSICAL EXAMINATION: GENERAL: The patient is alert and oriented x3, not in any acute distress. Well developed, well nourished. HEENT: Pupils are round and equally reacting to light. EOMI. No scleral icterus. No conjunctival pallor. Normocephalic, atraumatic. No pharyngeal erythema. No thyromegaly. CARDIOVASCULAR: S1 and S2 present. No murmurs, rubs, or gallops. PULMONARY: Chest is clear to auscultation, no wheezing or crackles. ABDOMEN: Soft, nontender, nondistended, normoactive bowel sounds. No palpable organomegaly. MUSCULOSKELETAL: No joint swelling or deformity. EXTREMITIES: No cyanosis, clubbing, or pedal edema. NEUROLOGICAL: Gross neurological examination did not reveal any focal deficits. SKIN: No rashes. Assessment Hypertension, uncontrolled with urgency Shortness of breath Chest pain, atypical Undergoing outpatient work up for myositis with recent muscle biopsy due to muscle weakness Gastroesophageal reflux disease Hyperlipidemia Hypomagnesemia Stable angina Myocardial infarction with cath x 2. No cardiac intervention GI prophylaxis: Pepcid DVT prophylaxis: Lovenox Full Code Plan Patient has been admitted in observation pending bed on the medical floor Cardiac consultation Echocardiogram ordered and pending Cardiology has started the patient on amlodipine as well as triamterene-hctz Imdur has been resumed Metoprolol will be changed to carvedilol Start low dose losartan Continue cardiac telemetry TSH elevated at 10.00 and T4 level pending Lipid panel pending Supplement magnesium and repeat level in the Am The impression and plan of care has been dictated by Marcia Frausto, Nurse Practitioner as directed. Dr. Kaylyn MD I have performed a history and physical examination and medical decision making of this patient, discussed the same with the dictator, and agree with the dictators assessment and plan as written, documented as a scribe. Based on total visit time, I have performed more than 50% of this visit. Objective - Vital Signs Vital signs: Vital Signs Temp 98.3 F 09/27/24 12:11 Pulse 67 09/27/24 15:57 Resp 18 09/27/24 15:57 BP 181/85 09/27/24 15:57 Pulse Ox 100 09/27/24 15:57 FiO2 Intake & Output 09/26/24 09/27/24 09/27/24 18:59 06:59 18:59 Weight 90.718 kg - Labs CBC & Chem 7: 09/27/24 05:00 09/27/24 05:00 Labs: Abnormal Lab Results - Last 24 Hours (Table) 09/27/24 09/27/24 09/27/24 Range/Units 05:00 05:00 05:00 MCH 26.5 L (27.0-32.0) pg Immature Gran # 0.08 H (0.00-0.04) 10*3/uL Lymphocytes # 0.84 L (0.90-5.00) 10*3/uL Creatinine 0.46 L (0.52-1.04) mg/dL Glucose 100 H (74-99) mg/dL Magnesium 1.3 L (1.6-2.3) mg/dL AST 47 H (14-36) U/L ALT 35 H (4-34) U/L Triglycerides 395.00 H (0.00-149.00) mg/dL VLDL Cholesterol, Calc 79.00 H (5.00-40.00) mg/dL HDL Cholesterol 37.20 L (40.00-60.00) mg/dL TSH 10.000 H (0.465-4.680) mIU/L Assessment and Plan Time with Patient: Less than 30
[2024-09-27] MEDS: ACETAMINOPHEN TAB 325 MG TAB PO PRN (17:22)
[2024-09-27] MEDS: ASPIRIN 325 MG TAB PO SCH (20:09)
[2024-09-27] MEDS ORDERED: METOPROLOL SUCCINATE (ER) 25 MG TAB.ER.24H PO SCH (21:00)
[2024-09-27] MEDS ORDERED: METOPROLOL SUCCINATE (ER) 50 MG TAB.ER.24H PO SCH (21:00)
[2024-09-28] MEDS: LOSARTAN 25 MG TAB PO SCH (08:30)
[2024-09-28 08:59] VITALS: BP 191/77; PULSE 67; RESP 16; TEMP 98.1
[2024-09-28 09:18] LABS: Anion Gap 10.40 mmol/L (4.00-12.00); BUN/Creat Ratio 26.60 Ratio (12.00-20.00); Blood Urea Nitrogen 13.3 mg/dL (9.0-27.0); Calcium 9.5 mg/dL (8.7-10.3); Carbon Dioxide 28.6 mmol/L (21.6-31.8); Chloride 101 mmol/L (96-109); Glucose 109 mg/dL (70-110); Magnesium 1.7 mg/dL (1.5-2.4); Potassium 3.8 mmol/L (3.5-5.5); Sodium 140 mmol/L (135-145)
--- NOTE | 2024-09-28 10:23 | P.PN ---
Subjective Progress Note Date: 09/28/24 Consult reason: chest pain, hypertension History of present illness: This is a 54-year-old female previously seen by Dr. Hong in 2021 with past medical history of coronary artery disease, hypertension, hyperlipidemia, palpitations, gout, intolerance to statin. We have been asked to evaluate the patient for hypertensive urgency. Patient states that she has had problems with muscle weakness and had a biopsy done of her left thigh by Dr. Greer on Tuesday. She states since Tuesday her blood pressure has been high. She has not been on any steroids and no new medication changes. She states her blood pressure normally runs normal when she is at her primary care, Dr. Castañeda or Dr. Anthony's office. Patient denies chest pain. No headache. Patient states that she has had cardiac catheterization done in the past but did not require PCI. Patient presented with a blood pressure of 214/84. She is status post 1 dose of IV labetalol, magnesium replacement. Blood pressure is now 182/78, heart rate 70, pulse ox 96% on room air. Patient seen today in the emergency center waiting for a bed on the observation unit. -EKG: Sinus rhythm with no acute ST-T wave changes. -Chest x-ray: No acute process. -Laboratory studies: CBC unremarkable, D-dimer 0.5, troponin negative. -Home cardiac medications: Aspirin 325 mg at bedtime, hydrochlorothiazide 25 mg daily, Imdur 30 mg twice daily, metoprolol succinate 50 mg at bedtime. -Echocardiogram performed in the office 01/02/2021 revealed EF of 55 to 60%, mild mitral regurgitation. 09/28/2024 Patient seen and examined on the observation unit. Yesterday a number of medication changes were made including discontinuing hydrochlorothiazide and starting triamterene hydrochlorothiazide, add addition of amlodipine and continued home dosing of Imdur and metoprolol succinate. Admitting team subsequently change metoprolol to Coreg. Blood pressure readings this morning 169/73, heart rate is in the 50s and 60s, pulse ox 97% on room air. Echocardiogram revealed LVH with preserved systolic function, LA enlargement. Triglycerides 395, cholesterol 189, LDL 72. TSH 10 and free T4 normal at 1.85. Physical examination: Gen: This is a 54-year-old female in no acute distress. VS: reviewed HEENT: Head is atraumatic, normocephalic. Pupils equal, round. Sclerae is anicteric. NECK: Supple. No JVD. LUNGS: Clear to auscultation. No wheezes or rhonchi. No intercostal retractions. HEART: Regular rate and rhythm. ABDOMEN: Soft No tenderness. EXTREMITIES: No pedal edema. No calf tenderness. NEUROLOGICAL: Patient is awake, alert and oriented x3. Assessment: Hypertensive urgency History of coronary artery disease without PCI Hypertension Hyperlipidemia Intolerance to statins Recent muscle biopsy done for muscle weakness Abnormal TSH to be addressed by admitting team Plan: Continue current cardiac medications: Triamterene hydrochlorothiazide 37.5-25 mg daily, amlodipine 10 mg daily, Imdur and Coreg 12.5 mg twice daily Patient is cleared for discharge on the current medications. Do not expect blood pressures to be well controlled immediately. Patient will follow-up in the office with Dr. Hong in at least 10 days or more time frame to allow medications to take effect. Nurse practitioner note has been reviewed, I agree with documented findings and plan of care. Patient was seen and examined. Objective - Vital Signs Vital signs: Vital Signs Temp 97.8 F 09/28/24 02:55 Pulse 54 L 09/28/24 02:55 Resp 17 09/28/24 02:55 BP 169/73 09/28/24 02:55 Pulse Ox 97 09/28/24 02:55 FiO2 Intake & Output 09/27/24 09/28/24 09/28/24 18:59 06:59 18:59 Weight 90.718 kg Other: # Voids 2 - Labs CBC & Chem 7: 09/27/24 05:00 09/28/24 05:23 Labs: Abnormal Lab Results - Last 24 Hours (Table) 09/27/24 Range/Units 05:00 Triglycerides 395.00 H (0.00-149.00) mg/dL VLDL Cholesterol, Calc 79.00 H (5.00-40.00) mg/dL HDL Cholesterol 37.20 L (40.00-60.00) mg/dL TSH 10.000 H (0.465-4.680) mIU/L
== END 2024-09-28 11:02 | disposition home or self-care (01) ==
LOC: EC 04:39 → 6NMEDSUR 07:10
PROVIDERS: ADMIT Internal Medicine; ATTEND Internal Medicine
DX: I16.0 Hypertensive urgency (principal); E83.42 Hypomagnesemia; I25.118 Atherosclerotic heart disease of native coronary artery with other forms of angina pectoris; R07.89 Other chest pain; I34.0 Nonrheumatic mitral (valve) insufficiency; I10 Essential (primary) hypertension; E78.5 Hyperlipidemia, unspecified; K21.9 Gastro-esophageal reflux disease without esophagitis; D75.839 Thrombocytosis, unspecified; M62.81 Muscle weakness (generalized); M10.9 Gout, unspecified; R60.0 Localized edema; R94.6 Abnormal results of thyroid function studies; Z79.82 Long term (current) use of aspirin; Z79.899 Other long term (current) drug therapy; Z88.8 Allergy status to other drugs, medicaments and biological substances; I25.2 Old myocardial infarction; Z87.891 Personal history of nicotine dependence
CPT/HCPCS: 96372 ×2; 96365; 96366; 96375; 99285; 36415; 93005; 93306; 85379; 84439; 83880; 80061; 80053; 80048; 84443; 83735 ×2; 84484; 85025; 85610; 85730; 71046; G0378 ×2; J1650 ×2; Q9957; J3475; J1920

== ENCOUNTER → 2024-10-15 | Outpatient (CLI) | payer OTHER ==
--- NOTE | 2024-10-15 10:14 | US ---
EXAMINATION TYPE: US renal artery duplex complet DATE OF EXAM: 10/15/2024 COMPARISON: CT chest abdomen pelvis 08/31/2024 CLINICAL INDICATION: Female, 54 years old with history of I1A.0 RESISTANT HYPERTENSION; HTN un contro lled TECHNIQUE: Grayscale, color Doppler and spectral Doppler imaging of the bilateral renal arteries and kidneys. 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 Grayscale imaging of the kidneys and show no evidence for hydronephrosis or mass. No renal calculi or cysts visualized. IMPRESSION: 1. Findings concerning for right renal artery stenosis with an elevated velocity, increased resistiv e index, and renal artery to aortic ratio. No significant stenosis identified involving the left helena l artery on recent CT. Consider further evaluation with CTA or MRA. 2. No evidence for left renal artery stenosis. [facility], , 10/15/2024 10:11 AM
== END | disposition home or self-care (01) ==
LOC: RADUSWWP 08:50
DX: I10 Essential (primary) hypertension (principal); I1A.0 Resistant hypertension
CPT/HCPCS: 93975